=== PATIENT | female | born 1995 | race Hispanic/Latino ===

== ENCOUNTER 2018-06-09 02:23 | Inpatient (IN) | payer SELFPAY ==
[2018-06-09] MEDS ORDERED: NACL 0.9% 1000 ML 1,000 ML IV ONE (02:40)
--- NOTE | 2018-06-09 02:43 | Emergency Department Report ---
History of Present Illness - General Stated Complaint: POSS OD Time Seen by Provider: 06/09/18 02:25 Source: patient, EMS Mode of arrival: Stretcher Limitations: No Limitations - History of Present Illness Initial Comments: Patient is a 23-year-old female presents to emergency room after an overdose. Patient was given nasal Narcan by EMS and has began to wake up. Patient answering questions appropriately. Patient is still lethargic but arousable. Patient states she typically liquid G capsule AK the date rape drug in order to try to get high. Patient states she was not trying to hurt herself she was just trying to get high. Patient denies suicidal ideations. Patient denies any pain or physical complaints. MD Complaint: accidental overdose -: Sudden Intent: other How Overdose Was Discovered: family/friend present, called 911 Context: Accidental Overdose: wanted to get high Associated Symptoms: nausea/vomiting, lethargy Treatments Prior to Arrival: oxygen, narcan - Related Data Previous Rx's Medication Instructions Recorded Last Taken Type Ibuprofen [Motrin] 600 mg PO Q8H PRN #90 tablet 07/19/14 Unknown Rx Sulfamethoxazole/Trimethoprim 1 each PO BID #20 tablet 07/19/14 Unknown Rx [Bactrim Ds] Prednisone [Prednisone 10 mg 10 mg PO .TAPER #1 tab.ds.pk 07/28/14 Unknown Rx (6-Day Pack, 21 Tabs)] Allergies Allergy/AdvReac Type Severity Reaction Status Date / Time No Known Allergies Allergy Verified 02/23/14 23:50 ED Review of Systems ROS: Stated complaint: POSS OD Other details as noted in HPI Constitutional: denies: chills, fever Eyes: denies: eye pain, eye discharge, vision change ENT: denies: ear pain, throat pain Respiratory: denies: cough, shortness of breath, wheezing Cardiovascular: denies: chest pain, palpitations Endocrine: no symptoms reported Gastrointestinal: denies: abdominal pain, nausea, diarrhea Genitourinary: denies: urgency, dysuria, discharge Musculoskeletal: denies: back pain, joint swelling, arthralgia Skin: denies: rash, lesions Neurological: denies: headache, weakness, paresthesias Psychiatric: denies: anxiety, depression Hematological/Lymphatic: denies: easy bleeding, easy bruising ED Past Medical Hx - Past Medical History Previous Medical History?: Yes Hx Headaches / Migraines: Yes Hx Psychiatric Treatment: Yes (2012 drug rehab oxycontin.) - Surgical History Past Surgical History?: Yes Hx Cholecystectomy: Yes Additional Surgical History: oral surgery - Family History Family history: no significant - Social History Smoking Status: Never Smoker Substance Use Type: None, Other - Medications Home Medications: Home Medications Medication Instructions Recorded Confirmed Last Taken Type Ibuprofen [Motrin] 600 mg PO Q8H PRN #90 tablet 07/19/14 Unknown Rx Sulfamethoxazole/Trimethoprim 1 each PO BID #20 tablet 07/19/14 Unknown Rx [Bactrim Ds] Prednisone [Prednisone 10 mg 10 mg PO .TAPER #1 tab.ds.pk 07/28/14 Unknown Rx (6-Day Pack, 21 Tabs)] ED Physical Exam - General Limitations: No Limitations General appearance: alert, in no apparent distress - Head Head exam: Present: atraumatic, normocephalic - Eye Eye exam: Present: normal appearance - ENT ENT exam: Present: mucous membranes moist - Neck Neck exam: Present: normal inspection - Respiratory Respiratory exam: Present: normal lung sounds bilaterally. Absent: respiratory distress - Cardiovascular Cardiovascular Exam: Present: regular rate, normal rhythm. Absent: systolic murmur, diastolic murmur, rubs, gallop - GI/Abdominal GI/Abdominal exam: Present: soft, normal bowel sounds - Extremities Exam Extremities exam: Present: normal inspection - Back Exam Back exam: Present: normal inspection - Neurological Exam Neurological exam: Present: alert, oriented X3 - Psychiatric Psychiatric exam: Present: normal affect, normal mood - Skin Skin exam: Present: warm, dry, intact, normal color. Absent: rash ED Course Vital Signs 06/09/18 06/09/18 06/09/18 02:32 04:29 06:46 Temperature 97.2 F L Pulse Rate 71 72 82 Respiratory 16 18 18 Rate Blood Pressure 128/77 105/52 112/66 [Left] O2 Sat by Pulse 99 100 100 Oximetry - Reevaluation(s) Reevaluation #1: Nurse to call poison control. We'll await for poison control recommendations. 06/09/18 02:40 06/09/18 02:40 Reevaluation #2: Poison control recommendations are to monitor patient for 8-10 hours and supportive care 06/09/18 04:04 Reevaluation #3: Stress plan of care with patient. Patient agrees with plan of care. Hospitalist consulted for admission. Dr. Pratt to assume care. Case and recommendations discussed with Dr. Pratt. Dr. Pratt to admit patient for further evaluation and treatment. 06/09/18 05:27 ED Medical Decision Making - Lab Data Result diagrams: 06/09/18 03:16 06/09/18 03:16 - Medical Decision Making This 23-year-old female that presents emergency room with overdose to the date rape drug. Patient will be admitted to PER poison control recommendations. Patient is to be observed for 8-10 hours and supportive care. Patient to be admitted to the hospitalist for further evaluation and treatment. - Differential Diagnosis accidental overdose. Drug abuse Critical Care Time: Yes Critical care attestation.: If time is entered above; I have spent that time in minutes in the direct care of this critically ill patient, excluding procedure time. Critical Care Time: 35 minutes of critical care time. ED Disposition Clinical Impression: Accidental overdose Disposition: DC-09 OP ADMIT IP TO THIS HOSP Is pt being admited?: Yes Does the pt Need Aspirin: No Condition: Serious Time of Disposition: 05:25
[2018-06-09 03:29] LABS: Basophils # (Auto) 0.1 K/mm3 (0.0-0.1); Basophils % (Auto) 0.5 % (0.0-1.8); Eosinophils # (Auto) 0.1 K/mm3 (0.0-0.4); Eosinophils % (Auto) 0.5 % (0.0-4.3); Hematocrit 42.1 % (30.3-42.9); Hemoglobin 13.9 gm/dl (10.1-14.3); Lymphocytes # (Auto) 1.5 K/mm3 (1.2-5.4); Lymphocytes % (Auto) 13.6 % (13.4-35.0); Mean Corpuscular HGB Conc 33 % (30-34); Mean Corpuscular Hemoglobin 29 pg (28-32); Mean Corpuscular Volume 89 fl (79-97); Monocytes # (Auto) 0.4 K/mm3 (0.0-0.8); Monocytes % (Auto) 3.7 % (0.0-7.3); Platelet Count 265 K/mm3 (140-440); Red Blood Count 4.73 M/mm3 (3.65-5.03); Red Cell Distribution Width 13.8 % (13.2-15.2)
[2018-06-09 03:53] LABS: Alanine Aminotransferase 13 units/L (7-56); Albumin 4.5 g/dL (3.9-5); BUN/Creatinine Ratio 17; Blood Urea Nitrogen 12 mg/dL (7-17); Calcium 9.2 mg/dL (8.4-10.2); Hemolysis Index 11
[2018-06-09 06:27] LABS: Bilirubin,Urine NEG (Negative); Blood,Urine LG (Negative); Color,Urine Yellow (Yellow); Mucus,Urine FEW /HPF; Protein,Urine <15 mg/dL mg/dL (Negative); Urobilinogen,Urine < 2.0 mg/dL (<2.0)
[2018-06-09 06:31] LABS: Benzodiazepines Screen,Urine PRESUMPTIVE NEGATIVE; Cannabinoid Screen,Urine PRESUMPTIVE NEGATIVE; Cocaine Screen,Urine PRESUMPTIVE NEGATIVE; Methadone Screen,Urine PRESUMPTIVE NEGATIVE; Opiate Screen,Urine PRESUMPTIVE NEGATIVE
[2018-06-09 06:49] LABS: Amphetamine Screen,Urine PRESUMPTIVE POSITIVE
[2018-06-09] MEDS ORDERED: NACL 0.9% 1000 ML 1,000 ML IV SCH (07:00)
--- NOTE | 2018-06-09 08:24 | Progress Note ---
Hospitalist Physical - Constitutional Vitals: Temp Pulse Resp BP Pulse Ox 97.2 F L 82 18 112/66 100 06/09/18 02:32 06/09/18 06:46 06/09/18 06:46 06/09/18 06:46 06/09/18 06:46 Results - Labs CBC & Chem 7: 06/09/18 03:16 06/09/18 03:16 Labs: Laboratory Last Values WBC 10.8 K/mm3 (4.5-11.0) 06/09/18 03:16 RBC 4.73 M/mm3 (3.65-5.03) 06/09/18 03:16 Hgb 13.9 gm/dl (10.1-14.3) 06/09/18 03:16 Hct 42.1 % (30.3-42.9) 06/09/18 03:16 MCV 89 fl (79-97) 06/09/18 03:16 MCH 29 pg (28-32) 06/09/18 03:16 MCHC 33 % (30-34) 06/09/18 03:16 RDW 13.8 % (13.2-15.2) 06/09/18 03:16 Plt Count 265 K/mm3 (140-440) 06/09/18 03:16 Lymph % (Auto) 13.6 % (13.4-35.0) 06/09/18 03:16 [place] % (Auto) 3.7 % (0.0-7.3) 06/09/18 03:16 Eos % (Auto) 0.5 % (0.0-4.3) 06/09/18 03:16 Baso % (Auto) 0.5 % (0.0-1.8) 06/09/18 03:16 Lymph # 1.5 K/mm3 (1.2-5.4) 06/09/18 03:16 [place] # 0.4 K/mm3 (0.0-0.8) 06/09/18 03:16 Eos # 0.1 K/mm3 (0.0-0.4) 06/09/18 03:16 Baso # 0.1 K/mm3 (0.0-0.1) 06/09/18 03:16 Seg Neutrophils % 81.7 % (40.0-70.0) H 06/09/18 03:16 Seg Neutrophils # 8.8 K/mm3 (1.8-7.7) H 06/09/18 03:16 Sodium 140 mmol/L (137-145) 06/09/18 03:16 Potassium 4.2 mmol/L (3.6-5.0) 06/09/18 03:16 Chloride 101.8 mmol/L (98-107) 06/09/18 03:16 Carbon Dioxide 25 mmol/L (22-30) 06/09/18 03:16 Anion Gap 17 mmol/L 06/09/18 03:16 BUN 12 mg/dL (7-17) 06/09/18 03:16 Creatinine 0.7 mg/dL (0.7-1.2) 06/09/18 03:16 Estimated GFR > 60 ml/min 06/09/18 03:16 BUN/Creatinine Ratio 17 % 06/09/18 03:16 Glucose 96 mg/dL (65-100) 06/09/18 03:16 Calcium 9.2 mg/dL (8.4-10.2) 06/09/18 03:16 Total Bilirubin 0.40 mg/dL (0.1-1.2) 06/09/18 03:16 AST 22 units/L (5-40) 06/09/18 03:16 ALT 13 units/L (7-56) 06/09/18 03:16 Alkaline Phosphatase 90 units/L (35-129) 06/09/18 03:16 Total Protein 7.4 g/dL (6.3-8.2) 06/09/18 03:16 Albumin 4.5 g/dL (3.9-5) 06/09/18 03:16 Albumin/Globulin Ratio 1.6 % 06/09/18 03:16 Urine Color Yellow (Yellow) 06/09/18 05:43 Urine Turbidity Clear (Clear) 06/09/18 05:43 Urine pH 5.0 (5.0-7.0) 06/09/18 05:43 Ur Specific [place] 1.019 (1.003-1.030) 06/09/18 05:43 Urine Protein <15 mg/dl mg/dL (Negative) 06/09/18 05:43 Urine Glucose (UA) Neg mg/dL (Negative) 06/09/18 05:43 Urine Ketones 20 mg/dL (Negative) 06/09/18 05:43 Urine Blood Lg (Negative) 06/09/18 05:43 Urine Nitrite Neg (Negative) 06/09/18 05:43 Urine Bilirubin Neg (Negative) 06/09/18 05:43 Urine Urobilinogen < 2.0 mg/dL (<2.0) 06/09/18 05:43 Ur Leukocyte Esterase Sm (Negative) 06/09/18 05:43 Urine WBC (Auto) 11.0 /HPF (0.0-6.0) H 06/09/18 05:43 Urine RBC (Auto) 5.0 /HPF (0.0-6.0) 06/09/18 05:43 U Epithel Cells (Auto) 8.0 /HPF (0-13.0) 06/09/18 05:43 Urine Mucus Few /HPF 06/09/18 05:43 Salicylates < 0.3 mg/dL (2.8-20.0) L 06/09/18 03:16 Urine Opiates Screen Presumptive negative 06/09/18 05:43 Urine Methadone Screen Presumptive negative 06/09/18 05:43 Acetaminophen < 5.0 ug/mL (10.0-30.0) L 06/09/18 03:16 Ur Barbiturates Screen Presumptive negative 06/09/18 05:43 Ur Phencyclidine Scrn Presumptive negative 06/09/18 05:43 Ur Amphetamines Screen Presumptive positive 06/09/18 05:43 U Benzodiazepines Scrn Presumptive negative 06/09/18 05:43 Urine Cocaine Screen Presumptive negative 06/09/18 05:43 U Marijuana (THC) Screen Presumptive negative 06/09/18 05:43 Drugs of Abuse Note Disclamer 06/09/18 05:43 Plasma/Serum Alcohol < 0.01 % (0-0.07) 06/09/18 03:16
[2018-06-09 11:50] VITALS: BP 114/66
--- NOTE | 2018-06-09 14:46 | History and Physical Report ---
History of Present Illness Date of examination: 06/09/18 Date of admission: 06/09/18 06:09 Chief complaint: Altered level of consciousness, possible drug overdose History of present illness: A pleasant 23-year-old female patient with no significant past medical history was brought to the emergency room by EMS with altered level of consciousness, possibly drug overdose. Patient received Narcan, given by EMS and patient became more alert and awake back to baseline. patient denies depression, suicidal ideation or thoughts, and reports that she took it to get high and not to hurt or harm herself. Poison control was contacted, recommend 8-10 hours of observation. Patient did not have any similar episodes in the past Denies any psychiatric conditions. d Past History Past Medical History: No medical history Past Surgical History: No surgical history Social history: alcohol abuse, other (recreational drug use) Family history: hypertension Medications and Allergies Allergies Allergy/AdvReac Type Severity Reaction Status Date / Time No Known Allergies Allergy Verified 02/23/14 23:50 Home Medications Medication Instructions Recorded Confirmed Last Taken Type Ibuprofen [Motrin] 600 mg PO Q8H PRN #90 tablet 07/19/14 Unknown Rx Sulfamethoxazole/Trimethoprim 1 each PO BID #20 tablet 07/19/14 Unknown Rx [Bactrim Ds] Prednisone [Prednisone 10 mg 10 mg PO .TAPER #1 tab.ds.pk 07/28/14 Unknown Rx (6-Day Pack, 21 Tabs)] Active Meds: Active Medications Sodium Chloride (Nacl 0.9% 1000 Ml) 1,000 mls @ 100 mls/hr IV DIRECT MARIBEL Review of Systems Constitutional: no weight loss, no weight gain, no fever, no chills Ears, nose, mouth and throat: no nasal congestion, no nasal discharge Cardiovascular: no chest pain, no orthopnea Respiratory: no cough, no shortness of breath Gastrointestinal: no abdominal pain, no nausea, no vomiting Genitourinary Female: no flank pain, no dysuria Musculoskeletal: no myalgias, no arthritis Integumentary: no rash, no lesions Neurological: no seizures, no syncope Psychiatric: no anxiety, no depression Endocrine: no cold intolerance, no heat intolerance, no polydipsia, no polyuria Hematologic/Lymphatic: no easy bruising, no easy bleeding Allergic/Immunologic: no urticaria, no allergic rhinitis Exam - Constitutional Vitals: Temp Pulse Resp BP Pulse Ox 97.6 F 83 16 114/66 100 06/09/18 10:40 06/09/18 10:40 06/09/18 10:40 06/09/18 10:40 06/09/18 10:40 General appearance: Present: no acute distress, well-nourished - EENT Eyes: Present: PERRL, EOM intact - Neck Neck: Present: supple, normal ROM - Respiratory Respiratory effort: normal Respiratory: negative: rales, rhonchi, wheezing - Cardiovascular Rhythm: regular Heart Sounds: Present: S1 & S2 - Extremities Extremities: no ischemia, No edema - Abdominal General gastrointestinal: Present: soft, non-tender, non-distended, normal bowel sounds - Integumentary Integumentary: Present: clear, warm - Musculoskeletal Musculoskeletal: strength equal bilaterally - Psychiatric Psychiatric: appropriate mood/affect, cooperative - Neurologic Neurologic: CNII-XII intact, moves all extremities Results - Labs CBC & Chem 7: 06/09/18 03:16 06/09/18 03:16 Labs: Abnormal lab results 06/09/18 06/09/18 06/09/18 Range/Units 03:16 03:16 03:16 Seg Neutrophils % 81.7 H (40.0-70.0) % Seg Neutrophils # 8.8 H (1.8-7.7) K/mm3 Urine WBC (Auto) (0.0-6.0) /HPF Salicylates < 0.3 L (2.8-20.0) mg/dL Acetaminophen < 5.0 L (10.0-30.0) ug/mL 06/09/18 Range/Units 05:43 Seg Neutrophils % (40.0-70.0) % Seg Neutrophils # (1.8-7.7) K/mm3 Urine WBC (Auto) 11.0 H (0.0-6.0) /HPF Salicylates (2.8-20.0) mg/dL Acetaminophen (10.0-30.0) ug/mL Assessment and Plan --Metabolic encephalopathy: On admission Resolved, probably secondary to drug abuse --Drug abuse / accidentally overdose; Closely monitor, supportive care --Drug abuse; amphetamine, advised to quit recreational drug use Advised to quit alcohol intake --DVT prophylaxis; ambulation Closely monitor possibly discharge this evening or tomorrow morning if stable Plan of care reviewed with the patient and her nurse in the ER
--- NOTE | 2018-06-09 15:15 | Discharge Summary ---
Providers - Providers Date of Admission: 06/09/18 06:09 Date of discharge: 06/09/18 Attending physician: MCKINLEY GILL Primary care physician: LYNDSEY SUN MD Hospitalization Reason for admission: altered mental status/accidental drug overdose Condition: Fair Hospital course: A pleasant 23-year-old female patient with no significant past medical history was brought to the emergency room by EMS with altered level of consciousness, possibly drug overdose. Patient received Narcan and became more alert and awake. poison control advised 8-10 hours of observation ; patient admitted symptomatically managed After few hrs patient feels better, no new complaints,Vital signs stable Physical examination unremarkable The patient is hemodynamically and clinically stable discharge home with family or friend [facility] Discharge diagnosis; --Metabolic encephalopathy --Accidental drug overdose --Polysubstance abuse Disposition: DC-01 TO HOME OR SELFCARE Time spent for discharge: 31 min Core Measure Documentation - Palliative Care Palliative Care/ Comfort Measures: Not Applicable - Core Measures Any of the following diagnoses?: none Exam - Constitutional Vitals: Temp Pulse Resp BP Pulse Ox 97.6 F 83 16 114/66 100 06/09/18 10:40 06/09/18 10:40 06/09/18 10:40 06/09/18 10:40 06/09/18 10:40 General appearance: Present: no acute distress, well-nourished - EENT Eyes: Present: PERRL, EOM intact - Neck Neck: Present: supple, normal ROM - Respiratory Respiratory effort: normal Respiratory: negative: rales, rhonchi, wheezing - Cardiovascular Rhythm: regular Heart Sounds: Present: S1 & S2 - Extremities Extremities: no ischemia, No edema - Abdominal General gastrointestinal: Present: soft, non-tender, non-distended, normal bowel sounds - Integumentary Integumentary: Present: clear, warm - Musculoskeletal Musculoskeletal: strength equal bilaterally - Psychiatric Psychiatric: appropriate mood/affect, cooperative - Neurologic Neurologic: CNII-XII intact, moves all extremities Plan Activity: no restrictions Diet: regular Additional Instructions: advised to quit alcohol intake. Advised to quit recreational drug use. Advised to follow [facility]- 3 days as needed Follow up with: PRIMARY CAREMD [Primary Care Provider] - 3-5 Days
== END 2018-06-09 16:40 | disposition home or self-care (01) | DRG 917 ==
LOC: ED 02:23 → 4A 06:09
PROVIDERS: ADMIT Internal Medicine; ATTEND Internal Medicine
DX: T50.991A Poisoning by other drugs, medicaments and biological substances, accidental (unintentional), initial encounter (principal); G93.41 Metabolic encephalopathy; F19.10 Other psychoactive substance abuse, uncomplicated; F10.10 Alcohol abuse, uncomplicated; F15.10 Other stimulant abuse, uncomplicated; G43.909 Migraine, unspecified, not intractable, without status migrainosus; Z90.49 Acquired absence of other specified parts of digestive tract; Z82.49 Family history of ischemic heart disease and other diseases of the circulatory system; Z79.899 Other long term (current) drug therapy; Z71.51 Drug abuse counseling and surveillance of drug abuser; Y92.89 Other specified places as the place of occurrence of the external cause
CPT/HCPCS: 36415; 80053; 80307; 80320; 81001; 85025; G0480; J7030

== ENCOUNTER 2018-12-31 02:25 | Emergency (ER) | payer SELFPAY ==
[2018-12-31] MEDS ORDERED: NACL 0.9% 1000 ML 1,000 ML IV ONE (02:43)
[2018-12-31 03:14] LABS: Basophils # (Auto) 0.1 K/mm3 (0.0-0.1); Basophils % (Auto) 0.4 % (0.0-1.8); Hematocrit 38.4 % (30.3-42.9); Hemoglobin 12.7 gm/dl (10.1-14.3); Lymphocytes # (Auto) 1.2 K/mm3 (1.2-5.4); Lymphocytes % (Auto) 8.4 % (13.4-35.0); Mean Corpuscular HGB Conc 33 % (30-34); Mean Corpuscular Volume 90 fl (79-97); Monocytes # (Auto) 0.5 K/mm3 (0.0-0.8); Monocytes % (Auto) 3.4 % (0.0-7.3); Platelet Count 265 K/mm3 (140-440); Red Blood Count 4.29 M/mm3 (3.65-5.03); Red Cell Distribution Width 12.7 % (13.2-15.2)
[2018-12-31 03:24] LABS: INR 1.04 (0.87-1.13); Partial Thromboplastin Time 24.6 Sec. (24.2-36.6)
[2018-12-31] MEDS ORDERED: ZOFRAN ONE (03:30)
[2018-12-31 03:37] LABS: BUN/Creatinine Ratio 20; Blood Urea Nitrogen 18 mg/dL (7-17); Calcium 9.1 mg/dL (8.4-10.2)
[2018-12-31] MEDS ORDERED: ZOFRAN IV ONE (03:44)
[2018-12-31] MEDS ORDERED: PROTONIX IV ONE (03:44)
[2018-12-31 03:48] LABS: Alanine Aminotransferase 14 units/L (7-56); Albumin 4.3 g/dL (3.9-5)
--- NOTE | 2018-12-31 05:30 | Emergency Department Report ---
ED N/V/D HPI - General Chief complaint: GI Bleed Stated complaint: GI BLEED Time Seen by Provider: 12/31/18 03:36 Source: EMS Mode of arrival: Stretcher Limitations: No Limitations - History of Present Illness Initial comments: 23-year-old female with past medical history narcotic abuse and previous cholecystectomy presents with complaints of nausea, vomiting and diarrhea 1 day. Patient recently release from [facility] after 8 day stay. She thinks she also have food poisoning in [facility]. Patient had epistaxis prior to onset of nausea vomiting. Patient vomited blood initially and then changed to coffee ground. Patient denies diarrhea, melena, hematochezia, or fever. - Related Data Previous Rx's Medication Instructions Recorded Last Taken Type Omeprazole Magnesium [PriLOSEC Otc] 20 mg PO QDAY #30 tablet. 12/31/18 Unknown Rx Ondansetron [Zofran Odt] 4 mg PO Q8HR PRN #20 tab.rapdis 12/31/18 Unknown Rx Allergies Allergy/AdvReac Type Severity Reaction Status Date / Time No Known Allergies Allergy Verified 12/31/18 02:43 ED Review of Systems ROS: Stated complaint: GI BLEED Other details as noted in HPI Comment: All other systems reviewed and negative ED Past Medical Hx - Past Medical History Hx Hypertension: Yes (takes no medication) Hx Headaches / Migraines: Yes Hx [facility] - Surgical History Hx Cholecystectomy: Yes Additional Surgical History: oral surgery - Social History Smoking Status: Never Smoker Substance Use Type: None - Medications Home Medications: Home Medications Medication Instructions Recorded Confirmed Last Taken Type Omeprazole Magnesium [PriLOSEC Otc] 20 mg PO QDAY #30 tablet. 12/31/18 Unknown Rx Ondansetron [Zofran Odt] 4 mg PO Q8HR PRN #20 tab.fideldis 12/31/18 Unknown Rx ED Physical Exam - General Limitations: No Limitations - Other Other exam information: General: No limitations, patient is alert in no acute distress Head exam: Atraumatic, normocephalic Eyes exam: Normal appearance ENT: Moist mucous membrane, normal oropharynx Neck exam: Normal inspection, full range of motion, no meningismus nontender Respiratory exam: Clear to auscultation bilateral, no wheezes, rales, crackles Cardiovascular: Normal rate and rhythm, normal heart sounds Abdomen: Soft, nondistended, mild epigastric tenderness P, with normal bowel sounds, no rebound, or guarding. Bruising to the right lower abdomen from when she was climbing the second bunk at [facility]. Mild tenderness at this area Extremity: Full range of motion normal inspection no deformity Back: Normal Inspection, full range of motion, no tenderness Neurologic: Alert, oriented x3, cranial nerves intact, no motor or sensory deficit Psychiatric: normal affect, normal mood Skin: Warm, dry, intact ED Course Vital Signs 12/31/18 12/31/18 12/31/18 02:42 02:54 03:00 Temperature 97.5 F L Pulse Rate 81 72 Respiratory 16 19 8 L Rate Blood Pressure 108/65 Blood Pressure 103/61 [Left] O2 Sat by Pulse 98 97 99 Oximetry 12/31/18 12/31/18 12/31/18 03:16 03:30 03:40 Temperature Pulse Rate 103 H 79 Respiratory 31 H 17 22 Rate Blood Pressure 108/65 108/65 Blood Pressure [Left] O2 Sat by Pulse 98 98 94 Oximetry 12/31/18 03:46 Temperature Pulse Rate 95 H Respiratory 18 Rate Blood Pressure 123/81 Blood Pressure [Left] O2 Sat by Pulse 57 L Oximetry ED Medical Decision Making - Lab Data Result diagrams: 12/31/18 03:00 12/31/18 03:00 Lab Results 12/31/18 12/31/18 12/31/18 Range/Units 03:00 03:00 03:00 WBC 13.9 H (4.5-11.0) K/mm3 RBC 4.29 (3.65-5.03) M/mm3 Hgb 12.7 (10.1-14.3) gm/dl Hct 38.4 (30.3-42.9) % MCV 90 (79-97) fl MCH 30 (28-32) pg MCHC 33 (30-34) % RDW 12.7 L (13.2-15.2) % Plt Count 265 (140-440) K/mm3 Lymph % (Auto) 8.4 L (13.4-35.0) % [place] % (Auto) 3.4 (0.0-7.3) % Eos % (Auto) 0.0 (0.0-4.3) % Baso % (Auto) 0.4 (0.0-1.8) % Lymph # 1.2 (1.2-5.4) K/mm3 [place] # 0.5 (0.0-0.8) K/mm3 Eos # 0.0 (0.0-0.4) K/mm3 Baso # 0.1 (0.0-0.1) K/mm3 Seg Neutrophils % 87.8 H (40.0-70.0) % Seg Neutrophils # 12.2 H (1.8-7.7) K/mm3 PT 14.0 (12.2-14.9) Sec. INR 1.04 (0.87-1.13) APTT 24.6 (24.2-36.6) Sec. Sodium 142 (137-145) mmol/L Potassium 4.3 (3.6-5.0) mmol/L Chloride 103.4 (98-107) mmol/L Carbon Dioxide 24 (22-30) mmol/L Anion Gap 19 mmol/L BUN 18 H (7-17) mg/dL Creatinine 0.9 (0.7-1.2) mg/dL Estimated GFR < 60 ml/min BUN/Creatinine Ratio 20 % Glucose 94 (65-100) mg/dL Calcium 9.1 (8.4-10.2) mg/dL Total Bilirubin 0.60 (0.1-1.2) mg/dL AST 27 (5-40) units/L ALT 14 (7-56) units/L Alkaline Phosphatase 17 L (35-129) units/L Total Protein 7.3 (6.3-8.2) g/dL Albumin 4.3 (3.9-5) g/dL Albumin/Globulin Ratio 1.4 % Lipase 17 (13-60) units/L Blood Type Antibody Screen 12/31/18 Range/Units 03:00 WBC (4.5-11.0) K/mm3 RBC (3.65-5.03) M/mm3 Hgb (10.1-14.3) gm/dl Hct (30.3-42.9) % MCV (79-97) fl MCH (28-32) pg MCHC (30-34) % RDW (13.2-15.2) % Plt Count (140-440) K/mm3 Lymph % (Auto) (13.4-35.0) % [place] % (Auto) (0.0-7.3) % Eos % (Auto) (0.0-4.3) % Baso % (Auto) (0.0-1.8) % Lymph # (1.2-5.4) K/mm3 [place] # (0.0-0.8) K/mm3 Eos # (0.0-0.4) K/mm3 Baso # (0.0-0.1) K/mm3 Seg Neutrophils % (40.0-70.0) % Seg Neutrophils # (1.8-7.7) K/mm3 PT (12.2-14.9) Sec. INR (0.87-1.13) APTT (24.2-36.6) Sec. Sodium (137-145) mmol/L Potassium (3.6-5.0) mmol/L Chloride (98-107) mmol/L Carbon Dioxide (22-30) mmol/L Anion Gap mmol/L BUN (7-17) mg/dL Creatinine (0.7-1.2) mg/dL Estimated GFR ml/min BUN/Creatinine Ratio % Glucose (65-100) mg/dL Calcium (8.4-10.2) mg/dL Total Bilirubin (0.1-1.2) mg/dL AST (5-40) units/L ALT (7-56) units/L Alkaline Phosphatase (35-129) units/L Total Protein (6.3-8.2) g/dL Albumin (3.9-5) g/dL Albumin/Globulin Ratio % Lipase (13-60) units/L Blood Type O POSITIVE Antibody Screen Negative - Medical Decision Making Patient felt better with ED treatment and tolerating by mouth. Patient's respiratory rate has remained normal without any signs of respiratory distress or hypoxia Hematemesis likely secondary to epistaxis which has since resolved. No anemia or hypotension - Differential Diagnosis gastroenteritis, food poisoning, gastritis Critical Care Time: No Critical care attestation.: If time is entered above; I have spent that time in minutes in the direct care of this critically ill patient, excluding procedure time. ED Disposition Clinical Impression: Epistaxis, Gastritis Disposition: TO HOME OR SELFCARE Is pt being admited?: No Condition: Stable Instructions: Gastritis (ED), Epistaxis (ED) Additional Instructions: Take Tylenol as needed for pain. Take the medication as prescribed. Follow up with your doctor. Return if symptoms worsen as indicated by your discharge instructions Prescriptions: Omeprazole Magnesium [PriLOSEC Otc] 20 mg PO QDAY #30 tablet. Ondansetron [Zofran Odt] 4 mg PO Q8HR PRN #20 tab.rapdis PRN Reason: Vomiting Referrals: MAURICIO ETIENNE [Primary Care Provider] - 3-[address] [facility] [Provider Group] - 3-5 Days Forms: Accompanied Note Time of Disposition: 06:27
[2018-12-31] MEDS ORDERED: REGLAN IV ONE (06:49)
[2018-12-31 07:52] VITALS: BP 106/62
== END 2018-12-31 08:15 | disposition home or self-care (01) ==
LOC: ED 02:25
DX: K29.70 Gastritis, unspecified, without bleeding (principal); R04.0 Epistaxis
CPT/HCPCS: 36415; 80053; 83690; 85025; 85610; 85730; 86850; 86900; 86901; 93005; 93010; 96361; 96374; 96375; 99284; C9113; J2405; J2765; J7030

== ENCOUNTER 2019-01-12 10:09 | Emergency (ER) | payer SELFPAY ==
[2019-01-12 10:48] VITALS: BP 110/66
--- NOTE | 2019-01-12 11:44 | XRay Report ---
FINAL REPORT EXAM: XR FOOT 3+V LT HISTORY: injury COMPARISON: None. TECHNIQUE: Three views of the left foot FINDINGS: There is an oblique, mildly displaced fracture of the 5th metatarsal bone. There is overlying soft ti ssue swelling. The remainder of the bones are intact. The joint spaces are preserved. There is no rad iopaque foreign body. IMPRESSION: Oblique, mildly displaced fracture of the 5th metatarsal bone. Associated soft tissue swelling.
[2019-01-12] MEDS ORDERED: IBUPROFEN PO ONE (11:50)
[2019-01-12] MEDS ORDERED: NORCO 5/325 PO ONE (11:50)
--- NOTE | 2019-01-12 11:56 | Emergency Department Report ---
ED Extremity Problem HPI - General Chief complaint: Extremity Injury, Lower Stated complaint: LEFT FOOT PAIN Time Seen by Provider: 01/12/19 11:36 Source: patient Mode of arrival: Ambulatory Limitations: No Limitations - History of Present Illness Initial comments: 23-year-old female with a past medical history migraines presents to the hospital complaints of left foot pain after slip and fall in her kitchen 3 days ago. No other injury reported. Patient reports 10/10 left foot pain greatest in the lateral aspect of the foot generalized swelling. Pain is constant, worse with palpation and movement without alleviating factors. Severity scale (0 -10): 10 - Related Data Previous Rx's Medication Instructions Recorded Last Taken Type Omeprazole Magnesium [PriLOSEC Otc] 20 mg PO QDAY #30 tablet. 12/31/18 Unknown Rx Ondansetron [Zofran Odt] 4 mg PO Q8HR PRN #20 tab.rapdis 12/31/18 Unknown Rx HYDROcodone/APAP 5-325 [Victoria 1 each PO Q6HR PRN #20 tablet 01/12/19 Unknown Rx 5/325] Ibuprofen [Motrin] 800 mg PO Q8HR PRN #30 tablet 01/12/19 Unknown Rx Allergies Allergy/AdvReac Type Severity Reaction Status Date / Time No Known Allergies Allergy Verified 12/31/18 02:43 ED Review of Systems ROS: Stated complaint: LEFT FOOT PAIN Other details as noted in HPI Comment: All other systems reviewed and negative ED Past Medical Hx - Past Medical History Hx Hypertension: Yes (takes no medication) Hx Headaches / Migraines: Yes Hx Psychiatric Treatment: Yes (2012 drug rehab oxycontin.) - Surgical History Hx Cholecystectomy: Yes Additional Surgical History: oral surgery - Social History Smoking Status: Never Smoker Substance Use Type: None - Medications Home Medications: Home Medications Medication Instructions Recorded Confirmed Last Taken Type Omeprazole Magnesium [PriLOSEC Otc] 20 mg PO QDAY #30 tablet. 12/31/18 Unknown Rx Ondansetron [Zofran Odt] 4 mg PO Q8HR PRN #20 tab.rapdis 12/31/18 Unknown Rx HYDROcodone/APAP 5-325 [Victoria 1 each PO Q6HR PRN #20 tablet 01/12/19 Unknown Rx 5/325] Ibuprofen [Motrin] 800 mg PO Q8HR PRN #30 tablet 01/12/19 Unknown Rx ED Physical Exam - General Limitations: No Limitations - Other Other exam information: General: No limitations, patient is alert in no acute distress Head exam: Atraumatic, normocephalic Eyes exam: Normal appearance ENT: Moist mucous membrane, normal oropharynx Neck exam: Normal inspection, full range of motion, no meningismus nontender Respiratory exam: Clear to auscultation bilateral, no wheezes, rales, crackles Cardiovascular: Normal rate and rhythm, normal heart sounds Abdomen: Soft, nondistended, and nontender, with normal bowel sounds, no rebound, or guarding Extremity: Generalized left foot swelling with mild ecchymosis greatest on the lateral aspect of the foot. Greatest tenderness on the lateral aspect of the foot. 2+ DP pulse. Full range of motion of ankle. Back: Normal Inspection, full range of motion, no tenderness Neurologic: Alert, oriented x3, cranial nerves intact, no motor or sensory deficit Psychiatric: normal affect, normal mood Skin: Warm, dry, intact ED Course Vital Signs 01/12/19 01/12/19 10:44 10:48 Temperature 98 F 98 F Pulse Rate 72 72 Respiratory 18 Rate Blood Pressure 110/66 Blood Pressure 110/66 [Right] O2 Sat by Pulse 92 Oximetry ED Medical Decision Making - Radiology Data Radiology results: report reviewed FINAL REPORT EXAM: XR FOOT 3+V LT HISTORY: injury COMPARISON: None. TECHNIQUE: Three views of the left foot FINDINGS: There is an oblique, mildly displaced fracture of the 5th metatarsal bone. There is overlying soft tissue swelling. The remainder of the bones are intact. The joint spaces are preserved. There is no radiopaque foreign body. IMPRESSION: Oblique, mildly displaced fracture of the 5th metatarsal bone. Associated soft tissue swelling. 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 ED Disposition Clinical Impression: Foot fracture, left Qualifiers: Encounter type: initial encounter Fracture type: closed Qualified Code(s): S92.902A - Unspecified fracture of left foot, initial encounter for closed fracture Disposition: TO HOME OR SELFCARE Is pt being admited?: No Condition: Stable Instructions: Foot Fracture in Adults (ED) Additional Instructions: Take the medication as prescribed. Follow up with your doctor or the clinic/doctor provided. Return if symptoms worsen as indicated by your discharge instructions Prescriptions: HYDROcodone/APAP 5-325 [Victoria 5/325] 1 each PO Q6HR PRN #20 tablet PRN Reason: Pain Ibuprofen [Motrin] 800 mg PO Q8HR PRN #30 tablet PRN Reason: Pain, Moderate (4-6) Referrals: PRANAV TATUM DPM [Staff Physician] - 3-5 Days (Manuscript Editor/foot doctor) CHRISTIAN CARRERA MD [Staff Physician] - 3-5 Days (Orthopedic doctor) Time of Disposition: 11:58 (d/c after meds and splint)
== END 2019-01-12 12:29 | disposition home or self-care (01) ==
LOC: ED 10:09
DX: S92.352A Displaced fracture of fifth metatarsal bone, left foot, initial encounter for closed fracture (principal); I10 Essential (primary) hypertension; G43.909 Migraine, unspecified, not intractable, without status migrainosus; Z90.49 Acquired absence of other specified parts of digestive tract; W01.0XXA Fall on same level from slipping, tripping and stumbling without subsequent striking against object, initial encounter; Y93.89 Activity, other specified; Y92.090 Kitchen in other non-institutional residence as the place of occurrence of the external cause; Y99.8 Other external cause status
CPT/HCPCS: 99283

== ENCOUNTER 2021-12-11 21:22 | Emergency (ER) | payer OTHER ==
[2021-12-11 21:28] VITALS: BP 156/92
[2021-12-12] MEDS ORDERED: KETOROLAC 30 MG/1 ML INJ IV ONE (00:38)
[2021-12-12 01:39] LABS: Basophils # (Auto) 0.1 K/mm3 (0.0-0.1); Basophils % (Auto) 0.6 % (0.0-1.8); Eosinophils # (Auto) 0.1 K/mm3 (0.0-0.4); Eosinophils % (Auto) 1.4 % (0.0-4.3); Hemoglobin 13.6 gm/dl (10.1-14.3); Lymphocytes # (Auto) 1.9 K/mm3 (1.2-5.4); Lymphocytes % (Auto) 19.8 % (13.4-35.0); Mean Corpuscular HGB Conc 33 % (30-34); Mean Corpuscular Volume 89 fl (79-97); Monocytes # (Auto) 0.5 K/mm3 (0.0-0.8); Monocytes % (Auto) 5.1 % (0.0-7.3); Platelet Count 285 K/mm3 (140-440); Red Cell Distribution Width 13.2 % (13.2-15.2)
[2021-12-12 02:00] LABS: Alanine Aminotransferase 13 units/L (7-56); Albumin 4.3 g/dL (3.9-5); Blood Urea Nitrogen 12 mg/dL (7-17); Calcium 8.8 mg/dL (8.4-10.2); Hemolysis Index 7
[2021-12-12 02:06] LABS: BUN/Creatinine Ratio 20
--- NOTE | 2021-12-12 02:57 | Emergency Department Report ---
ED ENT HPI - General Chief complaint: Dental/Oral Stated complaint: FACIAL SWELLING, "SZ" Time Seen by Provider: 12/12/21 02:53 Source: patient Mode of arrival: Ambulatory Limitations: No Limitations - History of Present Illness Initial comments: Patient 26-year-old female who presents for left-sided facial pain and swelling and dental pain x1 week. Patient states this is a chronic problem that exacerbates from time to time. Patient denies fevers or chills there is no nausea no vomiting. There has been no throat or ear pain. Symptoms are exacerbated by eating hot and cold stimuli. These are legal and nothing tried. - Related Data Previous Rx's Medication Instructions Recorded Last Taken Type Omeprazole Magnesium [PriLOSEC Otc] 20 mg PO QDAY #30 tablet. 12/31/18 Unknown Rx Ondansetron [Zofran Odt] 4 mg PO Q8HR PRN #20 tab.rapdis 12/31/18 Unknown Rx HYDROcodone/APAP 5-325 [Edison 1 each PO Q6HR PRN #20 tablet 01/12/19 Unknown Rx 5/325] Ibuprofen [Motrin] 800 mg PO Q8HR PRN #30 tablet 01/12/19 Unknown Rx Chlorhexidine Mouthwash [Peridex] 15 ml MM BID #1 bottle 12/12/21 Unknown Rx Clindamycin [Clindamycin CAP] 300 mg PO Q6H 7 Days #28 cap 12/12/21 Unknown Rx Ibuprofen [Motrin 800 MG tab] 800 mg PO Q8HR PRN #30 tablet 12/12/21 Unknown Rx Allergies Allergy/AdvReac Type Severity Reaction Status Date / Time No Known Allergies Allergy Verified 12/31/18 02:43 ED Dental HPI - General Chief complaint: Dental/Oral Stated complaint: FACIAL SWELLING, "SZ" Time Seen by Provider: 12/12/21 02:53 Source: patient Mode of arrival: Ambulatory Limitations: No Limitations - Related Data Previous Rx's Medication Instructions Recorded Last Taken Type Omeprazole Magnesium [PriLOSEC Otc] 20 mg PO QDAY #30 tablet. 12/31/18 Unknown Rx Ondansetron [Zofran Odt] 4 mg PO Q8HR PRN #20 tab.rapdis 12/31/18 Unknown Rx HYDROcodone/APAP 5-325 [Edison 1 each PO Q6HR PRN #20 tablet 01/12/19 Unknown Rx 5/325] Ibuprofen [Motrin] 800 mg PO Q8HR PRN #30 tablet 01/12/19 Unknown Rx Chlorhexidine Mouthwash [Peridex] 15 ml MM BID #1 bottle 12/12/21 Unknown Rx Clindamycin [Clindamycin CAP] 300 mg PO Q6H 7 Days #28 cap 12/12/21 Unknown Rx Ibuprofen [Motrin 800 MG tab] 800 mg PO Q8HR PRN #30 tablet 12/12/21 Unknown Rx Allergies Allergy/AdvReac Type Severity Reaction Status Date / Time No Known Allergies Allergy Verified 12/31/18 02:43 ED Review of Systems ROS: Stated complaint: FACIAL SWELLING, "SZ" Other details as noted in HPI Constitutional: denies: chills, fever, malaise Eyes: denies: eye pain, eye discharge, vision change ENT: dental pain, other (facieuoout to [facility] [place]). denies: ear pain, throat pain Respiratory: denies: cough, shortness of breath, wheezing Cardiovascular: as per HPI. denies: chest pain, palpitations, dyspnea on exertion, edema, syncope Endocrine: no symptoms reported Gastrointestinal: denies: abdominal pain, nausea, diarrhea Genitourinary: denies: urgency, dysuria, discharge Musculoskeletal: denies: back pain, joint swelling, arthralgia Skin: denies: rash, lesions Neurological: denies: headache, weakness, paresthesias Psychiatric: denies: anxiety, depression Hematological/Lymphatic: denies: easy bleeding, easy bruising ED Past Medical Hx - Past Medical History Hx Hypertension: Yes (takes no medication) Hx Headaches / Migraines: Yes Hx Psychiatric Treatment: Yes (2013 drug rehab oxycontin.) - Surgical History Hx Cholecystectomy: Yes Additional Surgical History: oral surgery - Social History Smoking Status: Never Smoker Substance Use Type: None - Medications Home Medications: Home Medications Medication Instructions Recorded Confirmed Last Taken Type Omeprazole Magnesium [PriLOSEC Otc] 20 mg PO QDAY #30 tablet. 12/31/18 Unknown Rx Ondansetron [Zofran Odt] 4 mg PO Q8HR PRN #20 tab.rapdis 12/31/18 Unknown Rx HYDROcodone/APAP 5-325 [Edison 1 each PO Q6HR PRN #20 tablet 01/12/19 Unknown Rx 5/325] Ibuprofen [Motrin] 800 mg PO Q8HR PRN #30 tablet 01/12/19 Unknown Rx Chlorhexidine Mouthwash [Peridex] 15 ml MM BID #1 bottle 12/12/21 Unknown Rx Clindamycin [Clindamycin CAP] 300 mg PO Q6H 7 Days #28 cap 12/12/21 Unknown Rx Ibuprofen [Motrin 800 MG tab] 800 mg PO Q8HR PRN #30 tablet 12/12/21 Unknown Rx ED Physical Exam - General Limitations: No Limitations General appearance: alert, in no apparent distress - Head Head exam: Present: normocephalic, normal inspection - Expanded Head Exam Expanded Head exam: Absent: laceration, abrasion, contusion - Eye Eye exam: Present: normal appearance, PERRL, EOMI. Absent: nystagmus, periorbital swelling, periorbital tenderness Pupils: Present: normal accommodation, irregular - ENT ENT exam: Present: normal exam, mucous membranes moist, TM's normal bilaterally, normal external ear exam - Expanded ENT Exam Expanded Mouth exam: Absent: drooling, trismus, muffled voice Teeth exam: Present: dental caries (18), dental tenderness # (18 erythema, mild gum swelling, mild facial swelling no drainage no ) Throat exam: Positive: normal inspection, tonsillar erythema. Negative: tonsil lomegaly, tonsillar exudate - Neck Neck exam: Present: normal inspection, tenderness, full ROM, lymphadenopathy, other. Absent: meningismus - Respiratory Respiratory exam: Present: normal lung sounds bilaterally. Absent: respiratory distress, wheezes, stridor, chest wall tenderness - Cardiovascular Cardiovascular Exam: Present: regular rate, normal rhythm, normal heart sounds. Absent: systolic murmur, diastolic murmur, rubs, gallop - GI/Abdominal GI/Abdominal exam: Present: soft, normal bowel sounds. Absent: distended, tenderness, guarding, rebound, bruit, hernia - Extremities Exam Extremities exam: Present: normal inspection, full ROM, tenderness, normal capillary refill - Back Exam Back exam: Present: normal inspection, full ROM. Absent: CVA tenderness (R), CVA tenderness (L) - Neurological Exam Neurological exam: Present: alert, oriented X3, CN II-XII intact, normal gait - Psychiatric Psychiatric exam: Present: normal affect, normal mood - Skin Skin exam: Present: warm, dry, intact, normal color. Absent: rash ED Course Vital Signs 12/11/21 21:27 Temperature 97.7 F Pulse Rate 98 H Respiratory 18 Rate Blood Pressure 156/92 [Right] O2 Sat by Pulse 100 Oximetry ED Medical Decision Making - Lab Data Result diagrams: 12/12/21 01:26 12/12/21 01:26 - Medical Decision Making Patient now endorses refusal for CT scan. Patient is currently alert oriented x3 patient demonstrates decision-making capacity, patient has been given the opportunity to and I have answered all questions to her satisfaction regarding her evaluation and status. Patient is tolerating p.o. intake without symptoms at this time. Plan advised is 12/06 at this time. Patient advises that she will follow-up with dentist in 1 to 2 days for definitive treatment. Patient is signing out AGAINST MEDICAL ADVICE (AMA )at this time Critical care attestation.: If time is entered above; I have spent that time in minutes in the direct care of this critically ill patient, excluding procedure time. ED Disposition Clinical Impression: Abscess, dental, Dental caries Disposition: 07 LEFT AGAINST MEDICAL ADVICE Is pt being admited?: No Does the pt Need Aspirin: No Condition: Undetermined Instructions: Dental Abscess, [id number] Additional Instructions: Take all medications as prescribed, follow-up with your dentist as soon as possible. Return to the emergency department if symptoms worsen or unable to tolerate by mouth Prescriptions: Clindamycin [Clindamycin CAP] 300 mg PO Q6H 7 Days #28 cap Ibuprofen [Motrin 800 MG tab] 800 mg PO Q8HR PRN #30 tablet PRN Reason: Pain , Severe (7-10) Chlorhexidine Mouthwash [Peridex] 15 ml MM BID #1 bottle Referrals: [facility] [Outside] - 2-3 Days [facility] [Provider Group] - [place] Forms: AMA Form Time of Disposition: 03:17
== END 2021-12-12 03:28 | disposition left against medical advice (07) ==
LOC: ED 21:22
DX: K04.7 Periapical abscess without sinus (principal); K02.9 Dental caries, unspecified; I10 Essential (primary) hypertension; Z90.49 Acquired absence of other specified parts of digestive tract
CPT/HCPCS: 36415; 80053; 84703; 85025; 96365; 96375; 99283; J1885; J7502